=== PATIENT | male | born 1955 | race Hispanic/Latino ===

== ENCOUNTER → 2018-09-30 | Outpatient (CLI) | payer OTHER | END | disposition home or self-care (01) | LOC: OIH 10:17 | PROVIDERS: ATTEND Internal Medicine | DX: I70.0 Atherosclerosis of aorta (principal); I10 Essential (primary) hypertension | CPT/HCPCS: 71046 ==

== ENCOUNTER → 2020-01-13 | Outpatient (CLI) | payer OTHER | END | disposition home or self-care (01) | LOC: OIH 07:56 | PROVIDERS: ATTEND Internal Medicine | DX: I10 Essential (primary) hypertension (principal); M47.814 Spondylosis without myelopathy or radiculopathy, thoracic region; I70.0 Atherosclerosis of aorta | CPT/HCPCS: 71046 ==

== ENCOUNTER → 2023-06-18 | Outpatient (CLI) | payer OTHER ==
[2023-06-18 10:20] LABS: CREATININE 0.9 mg/dL (0.5-1.5)
== END | disposition home or self-care (01) ==
LOC: LAB 09:47
PROVIDERS: ATTEND Otolaryngology Plastic Surgery within the Head & Neck
DX: H90.3 Sensorineural hearing loss, bilateral (principal)
CPT/HCPCS: 36415; 82565; 84520